=== PATIENT | female | born 1975 | race African-American/Black ===

== ENCOUNTER 2018-08-21 22:35 | Emergency (ER) | payer OTHER ==
[2018-08-21 22:41] VITALS: BP 106/57; PULSE 86; TEMP 98.2; BMI 30.5
--- NOTE | 2018-08-22 00:22 | PDOC ---
History of Present Illness - General Chief Complaint: Vaginal Bleeding Stated Complaint: VAGINAL BLEEDING Time Seen by Provider: 08/22/18 00:21 - History of Present Illness Initial Comments: 42yo A0 currently 18 weeks presenting with vaginal bleeding and abdominal pain. Patient states she felt blood trickling down her leg this past evening described as "bright red" and "dark." No passage of clots or tissue. She has had abdominal pain x 3 days described as sharp and rated 10/10. Nothing makes it better or worse. Has not taken anything [id number] at home. Patient saw her archival records clerk doctor today for the abdominal pain and was told it may be due to her fibroids. She had an ultrasound today which was "normal" and showed IUP. Denies urinary symptoms. Last bowel movement was today and was a normal formed brown stool without blood. Denies nausea or vomiting. No fevers, chills, chest pain, headache, or vision changes. alarm signal operator: Gurdeep Past History - Past Medical History Allergies/Adverse Reactions: Allergies Allergy/AdvReac Type Severity Reaction Status Date / Time tioconazole Allergy Verified 08/21/18 22:41 [From Monistat 1 (tioconazole)] COPD: No - Surgical History GI Surgery: Yes (HERNIA) - Reproductive History Is Patient Now?: Yes - Suicide/Smoking/Psychosocial Hx Smoking History: Never smoked Review of Systems - Review of Systems Comments:: Constitutional: no fever, no chills HEENT: no throat pain, no dysphagia Cardiovascular: no chest pain, no palpitations Respiratory: no cough, no shortness of breath Gastrointestinal: +abdominal pain, no nausea Genitourinary: no dysuria, +vaginal bleeding Musculoskeletal: no myalgia, no arthralgia Skin: no rash, no itching Neurologic: no headache, no weakness *Physical Exam - Vital Signs Last Vital Signs Temp Pulse Resp BP Pulse Ox 98.2 F 86 18 106/57 L 97 08/21/18 22:39 08/21/18 22:39 08/21/18 22:39 08/21/18 22:39 08/21/18 22:39 - Physical Exam Comments: General: Awake, alert, and fully oriented, laying in position Head: No signs of trauma Eyes: EOMI, sclera anicteric ENT: Moist mucus membranes Neck: Normal ROM, supple Lungs: Lungs clear, Normal breath sounds Cardio: Regular rhythm, S1 and S2 present Abdomen: Soft, nontender. No guarding, no rebound, no masses Extremities: Normal range of motion, Distal pulses present SKIN: Warm, Dry, normal turgor Neurologic: Cranial nerves II through XII grossly intact. Pelvic: External genitalia without erythema, exudate or discharge. Cervix is of normal color without lesion. The os is closed. There is dark red blood noted with one clot. Uterus is noted to be of appropriate size and nontender. No cervical motion tenderness is seen. No masses are palpated. The adnexa are without masses or tenderness. ED Treatment Course - LABORATORY CBC & Chemistry Diagram: 08/22/18 00:51 08/22/18 00:51 Medical Decision Making - Medical Decision Making 42yo A0 currently 18 weeks presenting with vaginal bleeding and abdominal pain. DDX including but not limited to threatened , ectopic , subchorionic hemorrhage, UTI, cervical/vaginal lesion, thrombocytopenia, pre- eclampsia CBC, CMP, UA, UCx, B-hcg, 975mg tylenol Bedside POCUS confirms IUP with HR of 156 08/22/18 00:22 CBC WBC 11.5 K/mm3 (4.0-10.0) H 08/22/18 00:51 RBC 4.17 M/mm3 (3.60-5.2) 08/22/18 00:51 Hgb 12.4 GM/dL (10.7-15.3) 08/22/18 00:51 Hct 38.1 % (32.4-45.2) 08/22/18 00:51 MCV 91.5 fl (80-96) 08/22/18 00:51 MCH 29.7 pg (25.7-33.7) 08/22/18 00:51 MCHC 32.5 g/dl (32.0-36.0) 08/22/18 00:51 RDW 13.8 % (11.6-15.6) 08/22/18 00:51 Plt Count 228 K/MM3 (134-434) 08/22/18 00:51 MPV 9.0 fl (7.5-11.1) 08/22/18 00:51 Absolute Neuts (auto) 9.5 K/mm3 (1.5-8.0) H 08/22/18 00:51 Neutrophils % 82.9 % (42.8-82.8) H 08/22/18 00:51 Lymphocytes % 9.5 % (8-40) 08/22/18 00:51 Monocytes % 6.8 % (3.8-10.2) 08/22/18 00:51 Eosinophils % 0.3 % (0-4.5) 08/22/18 00:51 Basophils % 0.5 % (0-2.0) 08/22/18 00:51 Nucleated RBC % 0 % (0-0) 08/22/18 00:51 Mild leukocytosis No anemia CMP Sodium 138 mmol/L (136-145) 08/22/18 00:51 Potassium 3.6 mmol/L (3.5-5.1) 08/22/18 00:51 Chloride 106 mmol/L (98-107) 08/22/18 00:51 Carbon Dioxide 23 mmol/L (21-32) 08/22/18 00:51 Anion Gap 9 MMOL/L (8-16) 08/22/18 00:51 BUN 4.8 mg/dL (7-18) L 08/22/18 00:51 Creatinine 0.5 mg/dL (0.55-1.3) L 08/22/18 00:51 Est GFR (CKD-EPI)AfAm 140.31 08/22/18 00:51 Est GFR (CKD-EPI)NonAf 121.06 08/22/18 00:51 Random Glucose 93 mg/dL (74-106) 08/22/18 00:51 Calcium 8.5 mg/dL (8.5-10.1) 08/22/18 00:51 Total Bilirubin 0.3 mg/dL (0.2-1) 08/22/18 00:51 AST 14 U/L (15-37) L 08/22/18 00:51 ALT 14 U/L (13-61) 08/22/18 00:51 Alkaline Phosphatase 70 U/L (45-117) 08/22/18 00:51 Total Protein 7.3 g/dl (6.4-8.2) 08/22/18 00:51 Albumin 3.1 g/dl (3.4-5.0) L 08/22/18 00:51 Beta HCG, Quant 01528.2 mIU/ml 08/22/18 00:51 Electrolytes unremarkable B-hcg appropriate for gestational age No transaminitis UA with blood, but only 4WBC Patient is Rh positive Plan for discharge with follow-up with archival records clerk and return precautions *DC/Admit/Observation/Transfer Diagnosis at time of Disposition: Threatened in second trimester - Discharge Dispostion Disposition: HOME Condition at time of disposition: Stable - Referrals Referrals: Alexandr Mackenzie MD [Primary Care Provider] - - Patient Instructions Printed Discharge Instructions: DI for Threatened Additional Instructions: You were seen in the Emergency Department for vaginal bleeding during . Blood work was within normal limits. A bedside ultrasound showed a fetus with a hearbeat in the uterus. Follow-up with your archival records clerk this week. Call tomorrow and make an appointment. Your workup is not complete until you do so. Pelvic rest is advised. Do not engage in sexual intercourse until you are cleared by your physician. You can take [id number] tylenol as needed for pain. Follow the instructions on the medication bottle. Return to the Emergency Department if you experience: -heavy bleeding (more than two pads per hour for two hours) -severe pain -lightheadedness -shortness of breath -high fever -any other concerning symptoms - Post Discharge Activity Forms/Work/School Notes: Back to Work
[2018-08-22] MEDS ORDERED: ACETAMINOPHEN 325 MG TABLET (FP) PO ONE (00:51)
[2018-08-22] MEDS ORDERED: ACETAMINOPHEN 325 MG TABLET (FP) ONE (00:59)
[2018-08-22 01:01] LABS: BASO % 0.5 % (0-2.0); EOS % 0.3 % (0-4.5); HEMATOCRIT 38.1 % (32.4-45.2); HEMOGLOBIN 12.4 GM/dL (10.7-15.3); LYMPH % 9.5 % (8-40); MCH 29.7 pg (25.7-33.7); MCHC 32.5 g/dl (32.0-36.0); MEAN CELL VOLUME 91.5 fl (80-96); MONO % 6.8 % (3.8-10.2); NEUT % 82.9 % (42.8-82.8); PLATELET COUNT 228 K/MM3 (134-434); RBC 4.17 M/mm3 (3.60-5.2); RDW 13.8 % (11.6-15.6); WHITE BLOOD COUNT 11.5 K/mm3 (4.0-10.0)
[2018-08-22 01:07] LABS: EPI CELLS 5.7 /HPF (0-5/HPF); HYALINE CASTS 9 /lpf (0-8); URINE APPEARANCE CLEAR; URINE BACTERIA 168.5 /hpf (NEGATIVE); URINE BILIRUBIN NEGATIVE (NEGATIVE); URINE COLOR YELLOW; URINE GLUCOSE (UA) NEGATIVE (NEGATIVE); URINE KETONE TRACE (NEGATIVE); URINE LEUK ESTERASE NEGATIVE (NEGATIVE); URINE NITRITE NEGATIVE (NEGATIVE); URINE PROTEIN TRACE (NEGATIVE); URINE RBC 8 /hpf (0-4); URINE UROBILINOGEN 0.2 mg/dL (0.2-1.0); URINE WBC 4 /hpf (0-5)
[2018-08-22 01:08] LABS: YEAST NONE SEEN (NEGATIVE)
--- NOTE | 2018-08-22 01:24 | PDOC ---
Documentation entered by Oralia Mireles SCRIBE, acting as scribe for Letha Joe DO. Letha Joe DO: This documentation has been prepared by the Aline savage Xhesika, SCRIBE, under my direction and personally reviewed by me in its entirety. I confirm that the documentation accurately reflects all work, treatment, procedures, and medical decision making performed by me. Attending Attestation - Resident Resident Name: Leora Quiroz - ED Attending Attestation I have performed the following: I have examined & evaluated the patient, The case was reviewed & discussed with the resident, I agree w/resident's findings & plan, Exceptions are as noted - HPI HPI: 08/22/18 01:25 The patient is a 42 year old female, , 18 weeks with no significant PMH of who presents to the emergency department with vaginal bleeding since 10pm. The patient states she had an ultrasound today at her OB/ RETIREMENT ASSISTANT Dr. Wright office and it was normal. The patient states she was laying down at home and she felt wet, looked and saw "bright red" and "dark blood. The patient notes she has been endorsing 3 days of abdominal pain described as 10/10, sharp pain. The patient denies dysuria, vaginal discharge, or any complications in her first trimester. The patient denies chest pain, shortness of breath, headache and dizziness. Denies fever, chills, nausea, vomiting, diarrhea and constipation. Denies frequency, urgency and hematuria. Allergies: tioconazole Past surgical history: PREVOCATIONAL/REHABILITATION COUNSELOR: Alexandr Mitchell - Physicial Exam PE: 08/22/18 01:25 GENERAL: Awake, alert, and fully oriented, in no acute distress HEAD: No signs of trauma EYES: PERRLA, EOMI, sclera anicteric, conjunctiva clear ENT: Auricles normal inspection, hearing grossly normal, nares patent, oropharynx clear without exudates. Moist mucosa NECK: Normal ROM, supple, no lymphadenopathy, JVD, or masses LUNGS: Breath sounds equal, clear to auscultation bilaterally. No wheezes, and no crackles HEART: Regular rate and rhythm, normal S1 and S2, no murmurs, rubs or gallops ABDOMEN: Soft, nontender, normoactive bowel sounds. (+) gravid just below the umbilicus. No guarding, no rebound. No masses EXTREMITIES: Normal range of motion, no edema. No clubbing or cyanosis. No cords, erythema, or tenderness NEUROLOGICAL: Cranial nerves II through XII grossly intact. Normal speech, normal gait SKIN: Warm, Dry, normal turgor, no rashes or lesions noted. - Medical Decision Making 08/22/18 01:19 I, Dr. Letha Joe, DO, attest that this document has been prepared under my direction and personally reviewed by me in its entirety. I further attest, that it accurately reflects all work, treatment, procedures and medical decision -making performed by me. 08/22/18 01:19 a/p: 42yo female at about 18 weeks gestation with vaginal bleeding tonight -no clots -no cramping -was laying in bed when she felt warm blood on the bed -admits to feeling the fetus move -saw director non profit earlier today and had an ultrasound -POCUS ultrasound shows iup with fhr 156 -per resident, os closed on exam with small amount of dark blood in the vault -will send labs -pt has been taking vitamins 08/22/18 01:34 mildly elevated wbc h/h stable 08/22/18 17:02 O+ blood type
[2018-08-22 02:13] LABS: ALBUMIN 3.1 g/dl (3.4-5.0); BILIRUBIN,TOTAL 0.3 mg/dL (0.2-1); BLOOD UREA NITROGEN 4.8 mg/dL (7-18); CALCIUM 8.5 mg/dL (8.5-10.1); CREATININE 0.5 mg/dL (0.55-1.3); POTASSIUM 3.6 mmol/L (3.5-5.1); TOT PROT 7.3 g/dl (6.4-8.2)
== END 2018-08-22 02:37 | disposition home or self-care (01) ==
LOC: JER 22:35
DX: O20.0 Threatened abortion (principal); Z3A.18 18 weeks gestation of pregnancy
CPT/HCPCS: 36415; 76815; 80053; 81003; 84702; 85025; 86850; 86900; 86901; 87086; 99282-25